=== PATIENT | male | born 1990 | race Caucasian/White ===

== ENCOUNTER 2021-03-27 06:41 | Outpatient (CLI) | payer OTHER, SELFPAY ==
--- NOTE | ~2021-03-27 | MR_ITS ---
EXAMINATION: MR shoulder RT wo con DATE: 03/27/2021 07:34 INDICATION: Right shoulder impingement syndrome and pain. TECHNIQUE: Magnetic resonance imaging (MRI) of the right shoulder was performed without intravenous c ontrast. Sequences included axial PD-weighted FS FSE, coronal oblique PD-weighted FS FSE and T2-weigh mahin FS FSE, and sagittal oblique T2-weighted FS FSE and T1-weighted FSE. COMPARISON: None. FINDINGS: Coracoacromial arch: The acromion undersurface is curved in morphology (type II). There is mild acromioclavicular joint os teoarthritis. There is moderate subacromial/subdeltoid bursitis. Rotator cuff: There is mild supraspinatus and infraspinatus tendinopathy. Teres minor tendon is normal. There is mi ld subscapularis tendinopathy. No tear. There is no asymmetric fatty atrophy of the rotator cuff musc le bellies. Biceps tendon and glenoid labrum: Biceps tendon is in bicipital groove. There is a partial tear of intra-articular biceps tendon. The g lenoid labrum is normal. Fluid: There is a small glenohumeral joint effusion. Bones/cartilage: The glenoid cartilage is normal. Humeral head cartilage is normal. IMPRESSION: 1. Partial tear of intra-articular biceps tendon. 2. Mild rotator cuff tendinopathy. No tear. 3. Mild acromioclavicular joint osteoarthritis. 4. Moderate subacromial/subdeltoid bursitis. 5. Small glenohumeral joint effusion. Reviewed, dictated and finalized at location B.
== END 2021-03-27 06:42 | disposition home or self-care (01) ==
PROVIDERS: Visit Provider Family Medicine
DX: M75.41 Impingement syndrome of right shoulder (principal); S46.211A Strain of muscle, fascia and tendon of other parts of biceps, right arm, initial encounter; S43.421A Sprain of right rotator cuff capsule, initial encounter; M19.011 Primary osteoarthritis, right shoulder; M75.51 Bursitis of right shoulder; M25.411 Effusion, right shoulder
CPT/HCPCS: 73221